=== PATIENT | female | born 1995 | race Caucasian/White ===

== ENCOUNTER → 2016-04-29 | Outpatient (CLI) | payer OTHER | END | disposition home or self-care (01) | LOC: SPEC 16:08 | PROVIDERS: ATTEND Nurse Practitioner Women's Health | DX: Z11.3 Encounter for screening for infections with a predominantly sexual mode of transmission (principal) | CPT/HCPCS: 87491; 87591 ==

== ENCOUNTER → 2016-12-13 | Outpatient (CLI) | payer OTHER | END | disposition home or self-care (01) | LOC: LAB 09:51 | DX: Z30.431 Encounter for routine checking of intrauterine contraceptive device (principal) | CPT/HCPCS: 36415; 84702 ==

== ENCOUNTER → 2017-11-29 | Outpatient (CLI) | payer OTHER ==
[2017-11-29 10:26] LABS: BASO # 0.1 x10^3/uL (0.0-0.2); BASO % 1 % (0-3); EOS # 0.3 x10^3/uL (0.0-0.7); EOS % 3 % (0-3); HEMATOCRIT 43.4 % (36.0-47.0); HEMOGLOBIN 15.2 g/dL (12.0-15.5); LYMPH # 2.4 x10^3/uL (1.0-4.8); LYMPH % 32 % (24-48); MEAN CORPUSCULAR HEMOGLOBIN 32 pg (25-35); MEAN CORPUSCULAR HGB CONC 35 g/dL (31-37); MEAN CORPUSCULAR VOLUME 90 fL (79-100); MONO # 0.5 x10^3/uL (0.0-1.1); MONO % 7 % (0-9); NEUT # 4.2 x10^3uL (1.8-7.7); NEUT % 56 % (31-73); PLATELET COUNT 253 x10^3/uL (140-400); RED BLOOD COUNT 4.82 x10^6/uL (3.50-5.40); RED CELL DISTRIBUTION WIDTH 12.7 % (11.5-14.5); WHITE BLOOD COUNT 7.6 x10^3/uL (4.0-11.0)
[2017-11-29 10:42] LABS: ALBUMIN 3.9 g/dL (3.4-5.0); CALCIUM 9.2 mg/dL (8.5-10.1); CREATININE 0.7 mg/dL (0.6-1.0); GFR 102.8; POTASSIUM 4.2 mmol/L (3.5-5.1); TOTAL BILIRUBIN 0.3 mg/dL (0.2-1.0)
[2017-11-29 10:43] LABS: CHOLESTEROL/HDL RATIO 4.1
[2017-11-29 10:52] LABS: FREE T4 0.93 ng/dL (0.76-1.46); THYROID STIM HORMONE (TSH) 0.836 uIU/mL (0.358-3.74)
== END | disposition home or self-care (01) ==
LOC: LAB 10:08
PROVIDERS: ATTEND Physician Assistant Medical
DX: Z00.00 Encounter for general adult medical examination without abnormal findings (principal); Z83.49 Family history of other endocrine, nutritional and metabolic diseases
CPT/HCPCS: 36415; 80053; 80061; 84439; 84443; 84481; 85025

== ENCOUNTER → 2017-11-29 | Outpatient (CLI) | payer OTHER ==
--- NOTE | 2017-11-29 14:12 | KCIC ---
Transabdominal and endovaginal pelvic ultrasound without comparison for spotting, evaluate IUD. Technique and findings: Real-time grayscale and color and spectral Doppler evaluation of the pelvic organs is performed. The uterus is normal in appearance, and measures 7.4 x 3.8 x 4.8 cm. No myometrial abnormalities are identified. The endometrium is normal in appearance as well measuring 3.3 mm. An IUD is present within the endometrial cavity. No fluid is seen within the endometrial cavity. The right ovary measures 3.5 x 2.3 x 2.8 cm and the left measures 3.2 x 2.1 x 2.9 cm. Both ovaries demonstrate normal follicular character with normal color and spectral Doppler flow. There is 1.5 cm dominant follicle in the left ovary. No adnexal masses are seen. No free fluid is evident. IMPRESSION: 1. Appropriately positioned IUD. 2. No sonographically discernible pelvic abnormality. Electronically signed by: Jalil Bonner MD (11/29/2017 2:09 PM) [id number]
== END | disposition home or self-care (01) ==
LOC: KCIC US 08:46
PROVIDERS: ATTEND Physician Assistant Medical
DX: Z30.431 Encounter for routine checking of intrauterine contraceptive device (principal)
CPT/HCPCS: 76830; 76856